=== PATIENT | female | born 1995 | race African-American/Black ===

== ENCOUNTER 2024-04-25 17:05 | Emergency (ER) | payer MEDICAID ==
[~2024-04-25] VITALS: Ht 160 cm; Wt 100.0 kg
[2024-04-25 17:19] VITALS: BP 124/76; PULSE 97; RESP 16; TEMP 98.7; O2SAT 100
== END 2024-04-25 20:17 | disposition left against medical advice (07) ==
LOC: ER 17:05
DX: R07.89 Other chest pain (principal); Z53.21 Procedure and treatment not carried out due to patient leaving prior to being seen by health care provider